=== PATIENT | female | born 1985 | race Caucasian/White ===

== ENCOUNTER 2016-08-10 14:48 | Inpatient (IN) | payer OTHER ==
[~2016-08-10] VITALS: Ht 175.3 cm; Wt 64.0 kg
[~2016-08-10 14:48] MED LIST: PREN0.01 PO
[2016-09-03] VITALS (14 sets, daily range): BP systolic 114–140; BP diastolic 55–83; PULSE 67–90; RESP 14–20; TEMP 97.7–98.3; O2SAT 98–99
[2016-09-03] MEDS ORDERED: LACTATED RINGER'S 1000 ML IV SCH (06:00)
[2016-09-03] MEDS ORDERED: ceFAZolin 1,000 MG/NS 100 ML IV SCH ×2 (06:00)
[2016-09-03] MEDS ORDERED: CITRIC ACID-SODIUM CITRATE LIQ 30 ML UDC PO SCH (06:00)
[2016-09-03] MEDS ORDERED: LACTATED RINGER'S 1000 ML IV ONE (06:00)
[2016-09-03 06:34] LABS: AUTOMATED NEUTROPHIL # 5.4 TH/MM3 (1.8-7.7); BASOPHIL % 0.5 % (0.0-2.0); EOSINOPHIL # 0.1 TH/MM3 (0-0.4); EOSINOPHIL % 1.1 % (0.0-4.0); HEMO FLAGS DIFF FINAL; LYMPH % 18.8 % (9.0-44.0); LYMPHOCYTE # 1.4 TH/MM3 (1.0-4.8); MEAN CORPUSCULAR HEMOGLOBIN 30.1 PG (27.0-34.0); MEAN CORPUSCULAR HGB CONC 33.9 % (32.0-36.0); MONO % 8.7 % (0.0-8.0); NEUT % 70.9 % (16.0-70.0); PLATELET COUNT 215 TH/MM3 (150-450); RED BLOOD COUNT 4.04 MIL/MM3 (4.00-5.30); RED CELL DISTRIBUTION WIDTH 13.8 % (11.6-17.2); WHITE BLOOD COUNT 7.6 TH/MM3 (4.0-11.0)
[2016-09-03 06:40] LABS: BLOOD, URINE NEG (NEG); COMMENT (UR) CULT NOT INDICATED; CULTURE IF INDICATED CULT NOT INDICATED; GLUCOSE,URINE NEG (NEG); KETONE, URINE NEG (NEG); MUCUS URINE FEW /lpf (OCC); NITRITE,URINE NEG (NEG); SQUAMOUS EPITHELIAL CELL URINE 1 /hpf (0-5); URINE COLOR YELLOW (YELLW/STRAW)
[2016-09-03] MEDS ORDERED: ceFAZolin 2 GM PREMIX 50 ML IV SCH (06:45)
--- NOTE | 2016-09-03 07:02 | MH ---
cc: LINDA MOTA DATE OF ADMISSION: 09/03/2016 DATE OF : 1985 ADMITTING DIAGNOSIS 1. Term . 2. Previous . HISTORY OF PRESENT ILLNESS The patient is a 31-year-old white female, para 0-1-0-1, LMP 12/05/2015, EDC 09/10/2016. Her course was benign. Her first delivery by was for severe preeclampsia. She is now admitted for repeat section. PAST MEDICAL HISTORY PREVIOUS SURGERY 1. In 2011 she had a right breast biopsy which was negative. 2. In 2012 she had a pleurectomy on the left after pneumothorax x2. MEDICATIONS Vitamins. ALLERGIES None. TRANSFUSIONS None. SOCIAL HISTORY She is . She is an RN at [employer]. Alcohol, tobacco and drugs are none. FAMILY HISTORY Noncontributory. PHYSICAL EXAMINATION GENERAL: A well-nourished, well-developed white female. VITAL SIGNS: Stable. HEENT: Normal. CHEST: Clear. HEART: Regular rate. BREASTS: Symmetrical. ABDOMEN: Benign. . EFW of 3300 grams. PELVIC: Cervix is closed. IMAGING Ultrasound has shown an anterior placenta. LABORATORY GBS is positive. ASSESSMENT As above. PLAN She is now admitted for repeat section. While in the office I explained the procedures, the risks, benefits and complications, and the patient elected to proceed. MD JOAQUIN Ames/QUINTIN /6:47 AM /6:55 AM
[2016-09-03] MEDS ORDERED: ePHEDrine/NS 25 MG/5 ML SYR ONE (07:20)
[2016-09-03] MEDS ORDERED: OXYTOCIN 10 UNIT/ML AMP ONE (07:20)
[2016-09-03] MEDS ORDERED: ACETAMINOPHEN 1000 MG/100 ML VIAL IV ONE (07:20)
[2016-09-03] MEDS ORDERED: EPIDURAL-NO SYSTEMIC NARCOTICS PRN (07:29)
[2016-09-03] MEDS ORDERED: EPIDURAL-DO NOT ADMINISTER ANTICOAGULANTS PRN (07:29)
[2016-09-03] MEDS ORDERED: EPIDURAL-DIPHENHYDRAMINE HCL 50 MG/ML VIAL IV PUSH PRN (07:29)
[2016-09-03] MEDS ORDERED: EPIDURAL-DIPHENHYDRAMINE HCL 50 MG CAP PO PRN (07:29)
[2016-09-03] MEDS ORDERED: EPIDURAL-NALOXONE HCL 0.4 MG/ML AMP IV PRN (07:29)
[2016-09-03] MEDS ORDERED: ONDANSETRON HCL 4 MG/2 ML VIAL IV PUSH ONE (08:00)
[2016-09-03] MEDS ORDERED: LACTATED RINGER'S 1,000 ML BAG IV ONE (08:00)
[2016-09-03] MEDS ORDERED: DEXAMETHASONE SOD PHOS 4 MG/ML VIAL IV ONE (08:00)
[2016-09-03] MEDS ORDERED: MORPHINE SULFATE PF 5 MG/10 ML VIAL ONE (08:25)
[2016-09-03] MEDS ORDERED: OXYTOCIN 30 UNITS-500ML PREMIX 500 ML IV ONE (08:30)
[2016-09-03] MEDS ORDERED: ONDANSETRON HCL 4 MG/2 ML VIAL IVP PRN (08:30)
[2016-09-03] MEDS ORDERED: MEASLES, MUMPS, RUBELLA VACCINE 0.5 ML VIAL SQ ONE (08:30)
[2016-09-03] MEDS ORDERED: DOCUSATE SODIUM 50 MG/SENNA 8.6 MG TAB PO PRN (08:30)
[2016-09-03] MEDS ORDERED: SODIUM CHLORIDE 0.9% FLUSH 5 ML FLUSH IV PRN (08:30)
[2016-09-03] MEDS ORDERED: oxyCODONE/ACETAMINOPHEN 5 MG/325 MG TAB PO PRN (08:30)
[2016-09-03] MEDS ORDERED: KETOROLAC TROMETHAMINE 30 MG/ML (IVP) VIAL IV PUSH PRN (08:30)
[2016-09-03] MEDS ORDERED: ZOLPIDEM TARTRATE 5 MG TAB PO PRN (08:30)
[2016-09-03] MEDS ORDERED: SIMETHICONE 80 MG CHEWABLE TAB PO PRN (08:30)
[2016-09-03] MEDS ORDERED: OXYTOCIN 30 UNITS-500ML PREMIX 500 ML ONE (08:55)
[2016-09-03] MEDS ORDERED: SODIUM CHLORIDE 0.9% FLUSH 5 ML FLUSH IV SCH (09:00)
[2016-09-03] MEDS ORDERED: LACTATED RINGER'S 1000 ML INJ 1,000 ML IV SCH (13:00)
[2016-09-03] MEDS: ACETAMINOPHEN 1000 MG/100 ML VIAL IV SCH (16:55)
[2016-09-03] MEDS ORDERED: OXYTOCIN 30 UNITS-500ML PREMIX 500 ML IV PRN (18:15)
[2016-09-04 00:30] VITALS: BP 125/82; PULSE 71; RESP 18; TEMP 98.5
[2016-09-04] MEDS: ACETAMINOPHEN 1000 MG/100 ML VIAL IV SCH ×2 (00:49→08:00)
[2016-09-04 04:50] VITALS: BP 124/80; PULSE 88; RESP 18; TEMP 97.8
[2016-09-04] MEDS: IBUPROFEN 600 MG TAB PO PRN ×3 (05:12→17:50)
[2016-09-04 05:40] LABS: AUTOMATED NEUTROPHIL # 13.4 TH/MM3 (1.8-7.7); BASOPHIL % 0.2 % (0.0-2.0); EOSINOPHIL # 0.1 TH/MM3 (0-0.4); EOSINOPHIL % 0.4 % (0.0-4.0); HEMATOCRIT 37.7 % (35.0-46.0); HEMO FLAGS DIFF FINAL; LYMPH % 10.3 % (9.0-44.0); LYMPHOCYTE # 1.7 TH/MM3 (1.0-4.8); MEAN CORPUSCULAR HEMOGLOBIN 30.3 PG (27.0-34.0); MEAN CORPUSCULAR HGB CONC 33.6 % (32.0-36.0); MONO % 5.8 % (0.0-8.0); NEUT % 83.3 % (16.0-70.0); PLATELET COUNT 216 TH/MM3 (150-450); RED BLOOD COUNT 4.18 MIL/MM3 (4.00-5.30); RED CELL DISTRIBUTION WIDTH 14.1 % (11.6-17.2); WHITE BLOOD COUNT 16.1 TH/MM3 (4.0-11.0)
[2016-09-04 05:52] LABS: BICARBONATE 26.8 MEQ/L (21.0-32.0); POTASSIUM 3.8 MEQ/L (3.5-5.1)
--- NOTE | 2016-09-04 06:44 | MP ---
cc: LINDA MOTA MD DATE OF SURGERY: 09/03/2016 PREOPERATIVE DIAGNOSIS: 1. Term . 2. Previous section. POSTOPERATIVE DIAGNOSIS: 1. Term . 2. Previous section. 3. Delivered. OPERATION: Repeat low transverse section. ANESTHESIA: Spinal. SURGEON: Linda Mota MD. [employer] OPERATIONS MANAGER: Genet Purcell ESTIMATED BLOOD LOSS: About 600 cc. FLUIDS: 1 liter crystalloid. OBJECTIVE FINDINGS: Following the induction of adequate spinal anesthesia. The patient was prepped and draped supine on the operating room table. left lateral tilt position with Garcia catheter in place. The abdomen was opened through a Pfannenstiel incision, we elected to excise her old scar. The fascia opened transversely stripped the muscles. Rectus muscle in the midline and the peritoneum opened sharply. The bladder flap taken down sharply retracted with Garry blade. The lower uterine segment incised transversely knife, extended, there was clear fluid. The LOT position. The vacuum suction by the occiput and used it to gently bring the head through the abdominal wound. Mouth was suctioned, cord clamped and cut and the baby passed to obstetrics team, a viable, vigorous female 's were 09/09, weight 6 pounds 14 ounces. Cord blood was sent for typing, sent for donation and uterine cavity cleaned with laps. Uterus was exteriorized and closed with running suture, first with a running locking stitch of Vicryl, second running imbricating stitch of 0 Vicryl, posterior inspection of the Uterus, tubes and ovaries normal. Uterus now placed in cavity, irrigation is preformed, no bleeding is evident. The bladder flap was used to close running stitch of 3-0 Vicryl. All structures removed. Counts were correct. The anterior peritoneum closed with 2-0 Vicryl. The fascia closed with running locking stitch, of 0 Vicryl corner midline tied, Subcu with 3-0 Vicryl and skin with subcuticular 3-0 Monocryl. Dermabond applied. Counts correct and the patient was awake and taken to the Recovery Room in good shape. Linda Mota MD [facility]/ /8:27 AM /6:37 AM
[2016-09-04 08:12] VITALS: BP 99/71; PULSE 91; RESP 16; TEMP 98.5
[2016-09-04] MEDS: oxyCODONE/ACETAMINOPHEN 5 MG/325 MG TAB PO PRN (18:46)
[2016-09-04 20:20] VITALS: BP 113/76; PULSE 83; RESP 18; TEMP 97.8
[2016-09-05] MEDS: IBUPROFEN 600 MG TAB PO PRN ×3 (01:48→14:40)
[2016-09-05 07:42] VITALS: BP 117/79; PULSE 86; RESP 18; TEMP 98.3
[2016-09-05] MEDS ORDERED: DIPHTH/TETANUS/ACEL PERTUSSIS (BOOSTER) 0.5 ML VIAL/PFS IM ONE (09:00)
[2016-09-05] MEDS: oxyCODONE/ACETAMINOPHEN 5 MG/325 MG TAB PO PRN (09:32)
== END 2016-09-05 15:17 | disposition home or self-care (01) | DRG 766 ==
LOC: H2EB 09-03 05:32 → H1EA 09-03 09:52
PROVIDERS: ADMIT Obstetrics & Gynecology; ATTEND Obstetrics & Gynecology
PROC: 10D00Z1 Extraction of Products of Conception, Low, Open Approach (ICD-10-PCS; principal; 2016-09-03)
PROC: 0HB7XZZ Excision of Abdomen Skin, External Approach (ICD-10-PCS; 2016-09-03)
DX: O34.219 Maternal care for unspecified type scar from previous cesarean delivery (principal); O99.824 Streptococcus B carrier state complicating childbirth; Z3A.39 39 weeks gestation of pregnancy; Z37.0 Single live birth
CPT/HCPCS: 59025; 80048; 81001; 85025; 86850; 86900; 86901; 90715; J0131; J0690; J1100; J1885; J2274; J2405; J2590; J7120